=== PATIENT | female | born 1995 | race Hispanic/Latino ===

== ENCOUNTER 2020-04-23 09:50 | Inpatient (IN) | payer MEDICAID ==
[~2020-04-23] VITALS: Ht 149.9 cm; Wt 57.6 kg
[2020-04-23 11:50] LABS: HEMATOCRIT 33.7 % (36-48); MEAN CORPUSCULAR VOLUME 84.3 fL (79-99); RED CELL DISTRIBUTION WIDTH 12.8 % (11.0-15.5); WHITE BLOOD COUNT (AUTO) 9.7 K/uL (4.8-10.8)
[2020-04-23 11:53] LABS: APPEARANCE,URINE Clear (CLEAR); BILIRUBIN,URINE Negative (NEGATIVE); COLOR,URINE Yellow (YELLOW); GLUCOSE, URINE (UA) Negative (NEGATIVE); KETONES,URINE Negative (NEGATIVE); LEUKOCYTE ESTERASE ,URINE Trace (NEGATIVE); NITRATE,URINE Negative (NEGATIVE); OCCULT BLOOD,URINE Negative (NEGATIVE); PROTEIN,URINE POS 1+ mg/dL (NEGATIVE)
[2020-04-23 11:57] LABS: RBC,URINE 0-1 /HPF (0-1); WBC,URINE 0-1 /HPF (0-1)
[2020-04-23 11:58] LABS: BACTERIA,URINE Few /HPF (None Seen); SQUAMOUS EPITHELIAL CELL,UR Few /HPF (0-2)
[2020-04-23] MEDS: LACTATED RINGERS 1000ML 1,000 ML IV PRN ×3 (12:02→22:02)
[2020-04-23] MEDS ORDERED: OXYTOCIN-LR 20 UNITS/1000 ML 1,000 ML IV SCH (12:15)
[2020-04-23] MEDS ORDERED: ROPIVACAINE 0.2% 100ML VIAL 100 ML EP SCH (16:45)
[2020-04-23] MEDS ORDERED: MEPERIDINE-PF 25 MG/ML SYG IM PRN (16:45)
[2020-04-23] MEDS ORDERED: PROMETHAZINE HCL 25 MG/ML 1ML AMPULE IM PRN (16:45)
[2020-04-23] MEDS ORDERED: EPHEDRINE SULFATE 50 MG/ML AMPULE IVP PRN (16:45)
[2020-04-23] MEDS ORDERED: NALOXONE HCL 0.4 MG/1 ML ML IV PRN (16:45)
[2020-04-23] MEDS ORDERED: LACTATED RINGERS 500 ML 500 ML IV PRN (16:45)
[2020-04-23 19:38] VITALS: BP 135/80
[2020-04-24] MEDS: LACTATED RINGERS 1000ML 1,000 ML IV PRN (06:00)
[2020-04-24] MEDS ORDERED: OXYTOCIN 10 USP UNITS/ML 20 UNIT in LACTATED RINGERS 1000ML 1,000 ML IV SCH (06:00)
[2020-04-24] MEDS ORDERED: MEPERIDINE-PF 50 MG/ML SYG IVP PRN (07:00)
[2020-04-24] MEDS ORDERED: MEPERIDINE-PF 50 MG/ML SYG ONE (07:46)
[2020-04-24] MEDS ORDERED: OXYTOCIN-LR 20 UNITS/1000 ML 1,000 ML IV PRN (12:00)
[2020-04-24] MEDS ORDERED: AMPICILLIN 2GM+NS 100ML 100 ML IV ONE (12:14)
[2020-04-24] MEDS ORDERED: AMPICILLIN 2GM+NS 100ML 100 ML IV SCH (12:15)
[2020-04-24 14:11] LABS: HEPATITIS Bs ANTIGEN SCREEN P Negative (Negative)
[2020-04-24] MEDS ORDERED: AMPICILLIN 1GM+NS 50ML 50 ML IV SCH (16:00)
[2020-04-24] MEDS ORDERED: LIDOCAINE HCL 1% 20 ML VIAL ONE (17:26)
[2020-04-24 17:56] VITALS: BP 140/70
[2020-04-24] MEDS ORDERED: ACETAMINOPHEN 325 MG TAB PO PRN (18:15)
[2020-04-24] MEDS ORDERED: WITCH HAZEL 1 PAD TP PRN (18:15)
[2020-04-24] MEDS ORDERED: LANOLIN 30GM OINTMENT TP PRN (18:15)
[2020-04-24] MEDS ORDERED: ACETAMINOPHEN-CODEINE 300/30MG TAB PO PRN (18:15)
[2020-04-24] MEDS ORDERED: BENZOCAINE/LANOLIN/ALOE VERA 60 ML AEROSOL TP PRN (18:15)
[2020-04-24] MEDS: IBUPROFEN 600 MG TABLET PO PRN (18:38)
[2020-04-24] MEDS ORDERED: PHARMACY COMMUNICATION MISC SCH (18:45)
[2020-04-24 18:51] VITALS: BP 135/68
--- NOTE | 2020-04-24 18:55 | NUR ---
PERICARE GIVEN, 15G QBL.
--- NOTE | 2020-04-24 19:00 | NUR ---
PATIENT ABLE TO AMBULATE TO WHEELCHAIR AND TRANSFERRED TO ROOM 112. PATIENT TOLERATED AMBULATION WELL.
[2020-04-24 19:48] VITALS: BP 125/70
[2020-04-24] MEDS: DOCUSATE SODIUM 100 MG CAP PO SCH (20:24)
[2020-04-24] MEDS: ZOSYN 3.375GM+NS 50ML 50 ML IV SCH (21:58)
[2020-04-25] VITALS: BP 119/74
[2020-04-25] MEDS: ZOSYN 3.375GM+NS 50ML 50 ML IV SCH ×4 (03:45→21:40)
[2020-04-25] MEDS: LACTATED RINGERS 1000ML 1,000 ML IV PRN (03:45)
[2020-04-25 04:05] VITALS: BP 121/70
[2020-04-25] MEDS: IBUPROFEN 600 MG TABLET PO PRN ×3 (04:17→21:52)
[2020-04-25 06:59] LABS: BASOPHILS % (AUTO) 0.2 % (0.0-5.0); EOSINOPHILS % (AUTO) 0.2 % (0.0-8.0); LYMPHOCYTES % (AUTO) 7.2 % (21.0-51.0); MEAN CORPUSCULAR HEMOGLOBIN 27.1 pg (27.0-33.0); MEAN CORPUSCULAR HGB CONC 31.9 g/dL (32.0-36.0); MEAN CORPUSCULAR VOLUME 85.1 fL (79-99); MONOCYTES % (AUTO) 6.9 % (3.0-13.0); PLATELET COUNT (AUTO) 288 K/uL (130-400); RED BLOOD CELL COUNT(AUTO) 3.76 MIL/uL (4.00-5.50); RED CELL DISTRIBUTION WIDTH 13.2 % (11.0-15.5); WHITE BLOOD COUNT (AUTO) 17.1 K/uL (4.8-10.8)
[2020-04-25 07:26] VITALS: BP 106/72
[2020-04-25] MEDS: DOCUSATE SODIUM 100 MG CAP PO SCH ×2 (08:49→21:40)
[2020-04-25 11:21] VITALS: BP 120/77
[2020-04-25 16:20] VITALS: BP 118/82
[2020-04-25 20:25] VITALS: BP 117/59
[2020-04-26 00:10] VITALS: BP 121/84
[2020-04-26] MEDS: ZOSYN 3.375GM+NS 50ML 50 ML IV SCH (04:05)
[2020-04-26 04:15] VITALS: BP 136/78
[2020-04-26 07:24] VITALS: BP 142/84
[2020-04-26] MEDS: DOCUSATE SODIUM 100 MG CAP PO SCH (09:15)
[2020-04-26] MEDS: IBUPROFEN 600 MG TABLET PO PRN (09:21)
--- NOTE | 2020-04-26 10:30 | NUR ---
pt is discharged, verbal and written discharge instructions given, informed of the follow up appointment, prescription given. informed to call the doctor for future concerns. pt voiced understanding to all things discussed. pt is waiting for baby's discharge. Addendum: 04/26/20 at 1032 by BALWINDER CONTRERAS RN Amended: Links added.
[2020-04-26 11:30] VITALS: BP 136/88
--- NOTE | 2020-04-26 12:15 | NUR ---
pt is dismissed with baby in stable condition, brought to private car via wheelchair Addendum: 04/26/20 at 1222 by BALWINDER CONTRERAS RN Amended: Links added.
== END 2020-04-26 12:15 | disposition home or self-care (01) | DRG 560 ==
LOC: OBSVTOIN 09:50 → LDH 09:50 → WSH 04-24 19:00
PROVIDERS: ADMIT Specialist; ATTEND Specialist
PROC: 10E0XZZ Delivery of Products of Conception, External Approach (ICD-10-PCS; principal; 2020-04-24)
PROC: 0W8NXZZ Division of Female Perineum, External Approach (ICD-10-PCS; 2020-04-24)
DX: O41.03X0 Oligohydramnios, third trimester, not applicable or unspecified (principal); Z3A.39 39 weeks gestation of pregnancy; Z37.0 Single live birth; Z53.29 Procedure and treatment not carried out because of patient's decision for other reasons
CPT/HCPCS: 36415; 81001; 85025; 85027; 86592; 86850; 86900; 86901; 87340; 96360; A4314; G0378; J0290; J2175; J2543; J2550; J2590; J2795; J3010; J7120